=== PATIENT | female | born 1990 | race Caucasian/White ===

== ENCOUNTER 2020-10-22 19:19 | Emergency (ER) | payer BC ==
[2020-10-22 19:36] VITALS: BP 140/65; PULSE 96
--- NOTE | 2020-10-22 19:36 | EDM.PDOC ---
ED HPI GENERAL MEDICAL PROBLEM - General Stated Complaint: ABDOMINAL PAIN Time Seen by Provider: 10/22/20 19:29 Source of Information: Reports: Patient, RN, RN Notes Reviewed History Limitations: Reports: No Limitations - History of Present Illness INITIAL COMMENTS - FREE TEXT/NARRATIVE: Patient presents to the ED via personal vehicle with complaints of abdominal pain. The patient reports this pain began abruptly today about seven hours prior following her noon meal. She states the pain started as sharp in her midepigastric area and notes it now radiates into her RLQ and characterizes it as a dull ache. She states she has taken one dose of Tyelnol 650mg which has offered her [id number] relief of pain. Additionally, she took Zofran 4mg ODT which did provide relief of her nausea. She denies recent illness, fever, shortness of breath, vomiting, dysuria, hematuria, diarrhea, melena, or hematochezia. She notes her LMP was October 03; she is SA2 L3. Her last bowel movement was today and reports is was formed and soft. She denies tobacco, alcohol, and recreational drug use. Right Lower Abdomen Pain Score (Numeric/FACES): 2 - Related Data Allergies Allergy/AdvReac Type Severity Reaction Status Date / Time No Known Allergies Allergy Verified 10/22/20 19:30 Home Meds: Home Meds Multivit-Min/Iron/Folic Acid/K [Multi For Her Softgel] 1 cap PO DAILY 10/22/20 [History] ED ROS GENERAL - Review of Systems Review Of Systems: Comprehensive ROS is negative, except as noted in HPI. ED EXAM, GI/ABD - Physical Exam Exam: Not Obtained Exam Limited By: No Limitations General Appearance: Alert, No Apparent Distress Eyes: Bilateral: Normal Appearance, EOMI Throat/Mouth: Normal Inspection, Normal Voice, No Airway Compromise Head: Atraumatic, Normocephalic Respiratory/Chest: No Respiratory Distress, Lungs Clear, Normal Breath Sounds, No Accessory Muscle Use, Chest Non-Tender Cardiovascular: Normal Peripheral Pulses, Regular Rate, Rhythm, No Edema, No Gallop, No JVD, No Rub, Systolic Murmur (2/6, loudest over the aortic area) GI/Abdominal Exam: Normal Bowel Sounds, Soft, No Organomegaly, No Distention, No Abnormal Bruit, No Mass, Pelvis Stable, Tender (To palpation of RLQ; Patient notes pain in RLQ with palpation of LLQ) (Female) Exam: Deferred Rectal (Female) Exam: Deferred Back Exam: Normal Inspection, Full Range of Motion. No: CVA Tenderness (L), CVA Tenderness (R) Extremities: Normal Inspection, Normal Range of Motion, Non-Tender, No Pedal Edema, Normal Capillary Refill Neurological: Alert, Oriented, CN II-XII Intact, Normal Cognition, Normal Gait, No Motor/Sensory Deficits Psychiatric: Normal Affect, Normal Mood Skin Exam: Warm, Dry, Intact, Normal Color, No Rash. No: Ecchymosis, Erythema, Jaundice, Mottled, Pallor, Petechiae Course - Vital Signs Last Recorded V/S: Last Vital Signs Temp 98.3 F 10/22/20 19:31 Pulse 96 10/22/20 19:31 Resp 16 10/22/20 19:31 BP 140/65 10/22/20 19:31 Pulse Ox 98 10/22/20 19:31 - Orders/Labs/Meds Orders: Active Orders 24 hr Category Date Time Status CULTURE BLOOD [BC] Stat Lab 10/22/20 21:30 Received CULTURE BLOOD [BC] Stat Lab 10/22/20 21:33 Received Blood Culture x2 Reflex Set [OM.PC] Stat Oth 10/22/20 20:12 Ordered Labs: Laboratory Tests 10/22/20 10/22/20 10/22/20 Range/Units 19:40 19:40 19:40 WBC 20.3 H (5.0-10.0) 10^3/uL RBC 4.50 (4.2-5.4) 10^6/uL Hgb 13.3 (12.0-16.0) g/dL Hct 39.1 (37.0-47.0) % MCV 86.9 D (80-100) fL MCH 29.6 (27.0-34.0) pg MCHC 34.0 (33.0-35.0) g/dL Plt Count 245 (150-450) 10^3/uL Neut % (Auto) 85.1 H (42.2-75.2) % Lymph % (Auto) 9.9 L (20.5-50.1) % [place] % (Auto) 4.8 (2-8) % Eos % (Auto) 0.1 L (1.0-3.0) % Baso % (Auto) 0.1 (0.0-1.0) % Sodium 135 L (136-145) mmol/L Potassium 3.7 (3.5-5.1) mmol/L Chloride 99 (98-107) mmol/L Carbon Dioxide 25 (21-32) mmol/L Anion Gap 14.7 H (7-13) mEq/L BUN 13 (7-18) mg/dL Creatinine 0.77 (0.55-1.02) mg/dL Est Cr Clr Drug Dosing 110.63 mL/min Estimated GFR (MDRD) > 60 BUN/Creatinine Ratio 16.9 (No establ ref range) Glucose 93 (70-99) mg/dL Lactic Acid 0.9 (0.4-2.0) mmol/L Calcium 8.6 (8.5-10.1) mg/dL Total Bilirubin 0.5 (0.2-1.0) mg/dL AST 15 (15-37) U/L ALT 23 (14-59) U/L Alkaline Phosphatase 50 (46-116) U/L Total Protein 7.4 (6.4-8.2) g/dL Albumin 3.8 (3.4-5.0) g/dL Globulin 3.6 Albumin/Globulin Ratio 1.1 Amylase 46 (25-115) U/L Lipase 100 (73-393) U/L Urine Color (YELLOW) Urine Appearance (CLEAR) Urine pH (5.0-9.0) Ur Specific [place] (1.005-1.030) Urine Protein (NEGATIVE) Urine Glucose (UA) (NEGATIVE) Urine Ketones (NEGATIVE) Urine Occult Blood (NEGATIVE) Urine Nitrite (NEGATIVE) Urine Bilirubin (NEGATIVE) Urine Urobilinogen (0.2-1.0) mg/dL Ur Leukocyte Esterase (NEGATIVE) Urine RBC /HPF Urine WBC (0-5/HPF) /HPF Ur Epithelial Cells (NOT SEEN) /HPF Amorphous Sediment (NOT SEEN) /HPF Urine Bacteria (0-FEW/HPF) /HPF Urine Mucus (NOT SEEN) /LPF Urine HCG, Qual 10/22/20 10/22/20 Range/Units 19:52 19:52 WBC (5.0-10.0) 10^3/uL RBC (4.2-5.4) 10^6/uL Hgb (12.0-16.0) g/dL Hct (37.0-47.0) % MCV (80-100) fL MCH (27.0-34.0) pg MCHC (33.0-35.0) g/dL Plt Count (150-450) 10^3/uL Neut % (Auto) (42.2-75.2) % Lymph % (Auto) (20.5-50.1) % [place] % (Auto) (2-8) % Eos % (Auto) (1.0-3.0) % Baso % (Auto) (0.0-1.0) % Sodium (136-145) mmol/L Potassium (3.5-5.1) mmol/L Chloride (98-107) mmol/L Carbon Dioxide (21-32) mmol/L Anion Gap (7-13) mEq/L BUN (7-18) mg/dL Creatinine (0.55-1.02) mg/dL Est Cr Clr Drug Dosing mL/min Estimated GFR (MDRD) BUN/Creatinine Ratio (No establ ref range) Glucose (70-99) mg/dL Lactic Acid (0.4-2.0) mmol/L Calcium (8.5-10.1) mg/dL Total Bilirubin (0.2-1.0) mg/dL AST (15-37) U/L ALT (14-59) U/L Alkaline Phosphatase (46-116) U/L Total Protein (6.4-8.2) g/dL Albumin (3.4-5.0) g/dL Globulin Albumin/Globulin Ratio Amylase (25-115) U/L Lipase (73-393) U/L Urine Color Yellow (YELLOW) Urine Appearance Clear (CLEAR) Urine pH 6.0 (5.0-9.0) Ur Specific [place] 1.020 (1.005-1.030) Urine Protein 30 H (NEGATIVE) Urine Glucose (UA) Negative (NEGATIVE) Urine Ketones 40 H (NEGATIVE) Urine Occult Blood Negative (NEGATIVE) Urine Nitrite Negative (NEGATIVE) Urine Bilirubin Negative (NEGATIVE) Urine Urobilinogen 0.2 (0.2-1.0) mg/dL Ur Leukocyte Esterase Negative (NEGATIVE) Urine RBC 0-5 /HPF Urine WBC 0-5 (0-5/HPF) /HPF Ur Epithelial Cells Few (NOT SEEN) /HPF Amorphous Sediment Few (NOT SEEN) /HPF Urine Bacteria Few (0-FEW/HPF) /HPF Urine Mucus Rare (NOT SEEN) /LPF Urine HCG, Qual Negative Meds: Medications Discontinued Medications Generic Name Dose Route Start Last Admin Trade Name Cleveq PRN Reason Stop Dose Admin Sodium Chloride 1,000 mls @ 999 mls/hr 10/22/20 20:15 10/22/20 20:35 Normal Saline IV 10/22/20 21:15 999 mls/hr .BOLUS ONE Administration Piperacillin Sod/Tazobactam 100 mls @ 200 mls/hr 10/22/20 21:10 10/22/20 21:40 Sod 3.375 gm/ Sodium Chloride IV 10/22/20 21:39 200 mls/hr ONETIME ONE Administration Sodium Chloride 1,000 mls @ 75 mls/hr 10/22/20 21:45 10/22/20 21:40 Normal Saline IV 75 mls/hr ASDIRECTED ALAN Administration Iopamidol 100 ml 10/22/20 20:10 10/22/20 20:15 Iopamidol 612 Mg/Ml 100 Ml Bottle IVPUSH 10/22/20 20:11 100 ml ONETIME ONE Administration Ondansetron HCl 4 mg 10/22/20 20:15 10/22/20 20:22 Ondansetron 4 Mg/2 Ml Sdv IVPUSH 10/22/20 20:16 4 mg ONETIME ONE Administration - Radiology Interpretation Free Text/Narrative:: [facility] Final Radiology Report Call: [phone] assistance Online chat: [email or web address] Name: MINNA ESPINOSA Age: 30Years F Date: 10/22/2020 SSN: -- : [id number] Study: CT ABDOMEN PELVIS W CONT Requesting Physician: Victoria Carson Images: [id number] Addl Studies: Provided Clinical History: RLQ abdominal pain, started about 7 hours Contrast: With Contrast Medium: [id number] Contrast Amount: 100 mL Contrast Method: Intravenous (IV) Page 1 of 2 PROCEDURE INFORMATION: Exam: CT Abdomen And Pelvis With Contrast Exam date and time: 10/22/2020 8:31 PM Age: 30 years old Clinical indication: Other: Wbc 20.3; Additional info: Rlq abdominal pain, started about 7 hours TECHNIQUE: Imaging protocol: Computed tomography of the abdomen and pelvis with contrast. Radiation optimization: All CT scans at this facility use at least one of these dose optimization techniques: automated exposure control; mA and/or kV adjustment per patient size (includes targeted exams where dose is matched to clinical indication); or iterative reconstruction. Contrast material: [id number]; Contrast volume: 100 ml; Contrast route: INTRAVENOUS (IV); COMPARISON: No relevant prior studies available. FINDINGS: Liver: Normal in architecture. No suspicious hepatic mass. Gallbladder and bile ducts: No calcified stones or local inflammation around the gallbladder. No ductal dilatation. Pancreas: Normal parenchymal bulk and the gland is sharply marginated. No local inflammation and ductal dilatation. No organized fluid collection, mass, or calcification. Spleen: The spleen is normal in size. No splenic mass or abnormal fluid collection. Adrenal glands: Normal. No mass. Kidneys and ureters: Both kidneys are normal in parenchymal bulk. No hydronephrosis, stone, or solid mass. Stomach and bowel: The stomach is unremarkable. There are no dilated or thickened loops of small intestine. Gas and stool are seen within the colon to the rectum. Appendix: The appendix is dilated to 12 mm and its wall is thickened. There is an appendicularlith or 2 near the appendix base. Intraperitoneal space: No pneumoperitoneum, ascites, mass or stranding of fat. Vasculature: No aneurysm. Lymph nodes: No enlarged lymph nodes. Urinary bladder: Unremarkable as visualized. Reproductive: The uterus and ovaries are within normal limits. There are no adenexal masses. Bones/joints: Age appropriate. No acute fracture. No dislocation. There are no suspicious lytic or osteosclerotic lesions. Soft tissues: No suspicious soft tissue masses, soft tissue gas of significance, or hernia. IMPRESSION: Appendicitis. No evidence for perforation, small bowel obstruction, or abscess. Thank you for allowing us to participate in the care of your patient. Dictated and Authenticated by: Adrien Jimenez MD 10/22/2020 9:17 PM Central Time ([place] & [place]) - Re-Assessments/Exams Free Text/Narrative Re-Assessment/Exam: 10/22/20 WBC 20.1 - will obtain blood cultures. NS 1L bolus initiated. Hcg negative, will order CT abdomen/pelvis. Will start Zosyn 3.375mg IV Reviewed findings of lab and examination with patient; discussed plan of CT. CT remarkable for appendicitis without perforation, obstruction, or abscess. Case discussed with Dr. Dill who kindly accepted patient for transfer. Patient updated on findings of CT, as well as need for transfer to higher level of care. Patient verbalized understanding and agreement. Departure - Departure Time of Disposition: 22:11 Disposition: DC/Tfer to Acute Hospital 02 Condition: Good Clinical Impression: Appendicitis Qualifiers: Appendicitis type: acute appendicitis Acute appendicitis type: with localized peritonitis Appendicitis gangrene presence: without gangrene Appendicitis perforation presence: without perforation Appendicitis abscess presence: without abscess Qualified Code(s): K35.30 - Acute appendicitis with localized peritonitis, without perforation or gangrene - Discharge Information Referrals: PCP,None [Ordering Only Provider] - Forms: Interfacility Transfer [facility] Sepsis Event Note (ED) - Focused Exam Vital Signs: Vital Signs Temp Pulse Resp BP Pulse Ox 10/22/20 19:31 98.3 F 96 16 140/65 98 - My Orders Last 24 Hours: My Active Orders 10/22/20 20:12 Blood Culture x2 Reflex Set [OM.PC] Stat 10/22/20 21:30 CULTURE BLOOD [BC] Stat 10/22/20 21:33 CULTURE BLOOD [BC] Stat - Assessment/Plan Last 24 Hours: My Active Orders 10/22/20 20:12 Blood Culture x2 Reflex Set [OM.PC] Stat 10/22/20 21:30 CULTURE BLOOD [BC] Stat 10/22/20 21:33 CULTURE BLOOD [BC] Stat
[2020-10-22 20:07] LABS: ANION GAP 14.7 mEq/L (7-13); CHLORIDE,CL 99 mmol/L (98-107); SODIUM,NA 135 mmol/L (136-145)
[2020-10-22] MEDS ORDERED: Iopamidol 612 MG/ML 100 ML Bottle IVPUSH ONE (20:10)
[2020-10-22] MEDS ORDERED: Ondansetron 4 MG/2 ML SDV IVPUSH ONE (20:15)
[2020-10-22] MEDS ORDERED: Sodium Chloride 0.9% 1,000 ML IV ONE (20:15)
[2020-10-22] MEDS ORDERED: Piperacillin/Tazobactam 3.375 GM in Sodium Chloride 0.9% 100 ML IV ONE (21:10)
--- NOTE | 2020-10-22 21:18 | CT ---
PROCEDURE INFORMATION: Exam: CT Abdomen And Pelvis With Contrast Exam date and time: 10/22/2020 8:31 PM Age: 30 years old Clinical indication: Other: Wbc 20.3; Additional info: Rlq abdominal pain, started about 7 hours TECHNIQUE: Imaging protocol: Computed tomography of the abdomen and pelvis with contrast. Radiation optimization: All CT scans at this facility use at least one of these dose optimization techniques: automated exposure control; mA and/or kV adjustment per patient size (includes targeted exams where dose is matched to clinical indication); or iterative reconstruction. Contrast material: [id number]; Contrast volume: 100 ml; Contrast route: INTRAVENOUS (IV); COMPARISON: No relevant prior studies available. FINDINGS: Liver: Normal in architecture. No suspicious hepatic mass. Gallbladder and bile ducts: No calcified stones or local inflammation around the gallbladder. No ductal dilatation. Pancreas: Normal parenchymal bulk and the gland is sharply marginated. No local inflammation and ductal dilatation. No organized fluid collection, mass, or calcification. Spleen: The spleen is normal in size. No splenic mass or abnormal fluid collection. Adrenal glands: Normal. No mass. Kidneys and ureters: Both kidneys are normal in parenchymal bulk. No hydronephrosis, stone, or solid mass. Stomach and bowel: The stomach is unremarkable. There are no dilated or thickened loops of small intestine. Gas and stool are seen within the colon to the rectum. Appendix: The appendix is dilated to 12 mm and its wall is thickened. There is an appendicularlith or 2 near the appendix base. Intraperitoneal space: No pneumoperitoneum, ascites, mass or stranding of fat. Vasculature: No aneurysm. Lymph nodes: No enlarged lymph nodes. Urinary bladder: Unremarkable as visualized. Reproductive: The uterus and ovaries are within normal limits. There are no adenexal masses. Bones/joints: Age appropriate. No acute fracture. No dislocation. There are no suspicious lytic or osteosclerotic lesions. Soft tissues: No suspicious soft tissue masses, soft tissue gas of significance, or hernia. IMPRESSION: Appendicitis. No evidence for perforation, small bowel obstruction, or abscess.
[2020-10-22] MEDS ORDERED: Sodium Chloride 0.9% 1,000 ML IV SCH (21:45)
== END 2020-10-22 22:03 ==
LOC: DL.ED 19:19
DX: K35.30 Acute appendicitis with localized peritonitis, without perforation or gangrene (principal)
CPT/HCPCS: 36415; 74177; 80053; 81001; 81025; 82150; 83605; 83690; 85025; 87040; 96365; 96375; 99284; 99285-25; J2405; J2543; J7030; Q9967